=== PATIENT | male | born 1960 | race African-American/Black ===

== ENCOUNTER 2021-12-07 10:49 | Emergency (ER) | payer SELFPAY ==
[~2021-12-07] VITALS: Ht 170.2 cm; Wt 65.0 kg
[2021-12-07 11:08] VITALS: BP 117/68
[2021-12-07] MEDS ORDERED: LEVETIRACETAM 500MG PREMIX 100 ML IV ONE (11:15)
[2021-12-07] MEDS ORDERED: PHEN200C5 MT (11:30)
[2021-12-07] MEDS ORDERED: GABA-529 MT (11:30)
[2021-12-07] MEDS ORDERED: [UNRECOGNIZED DRUG - CODE] MT (11:30)
[2021-12-07 13:19] LABS: HEPATITIS B SURFACE AB 12.4 mIU/mL
[2021-12-07 13:29] LABS: HEPATITIS B SURFACE ANTIGEN NEGATIVE
[2021-12-07 15:33] LABS: CHLORIDE 107 mEq/L (98-107)
[2021-12-08 09:09] LABS: HIV SCREEN 4G Non Reactive (Non Reactive)
== END 2021-12-07 12:22 | disposition home or self-care (01) ==
LOC: ER 11:22
DX: G40.909 Epilepsy, unspecified, not intractable, without status epilepticus (principal); I10 Essential (primary) hypertension; F99 Mental disorder, not otherwise specified; Z20.2 Contact with and (suspected) exposure to infections with a predominantly sexual mode of transmission; Z91.14 Patient's other noncompliance with medication regimen; Z88.8 Allergy status to other drugs, medicaments and biological substances
CPT/HCPCS: 36415; 80053; 86592; 86695; 86696; 86705; 86706; 86803; 87340; 87389; 99283